=== PATIENT | male | born 1990 | race Caucasian/White ===

== ENCOUNTER 2019-09-11 12:45 | Emergency (ER) | payer SELFPAY ==
[2019-09-11 13:02] VITALS: BP 127/77; PULSE 88; RESP 16; TEMP 36.6; O2SAT 99; BMI 25.0
--- NOTE | 2019-09-11 13:25 | ED_ITS ---
HPI - General Adult General: Chief complaint: General Medical Stated complaint: congestion Time Seen by Provider: 09/11/19 12:53 History of Present Illness: HPI narrative: 28-year-old male returns with sinus congestion for the last week no fever no cough. [id number] antihistamines with minimal relief. Denies any other symptoms no sweats chills vomiting diarrhea Associated symptoms: Deny chest pain, dyspnea, malaise, nausea, rash or vomiting Review of Systems Const: Denies: fever, chills, body aches, change in appetite, fatigue or malaise ENMT: Reports: nasal discharge and nasal congestion; Denies: throat pain or ear pain Card: Denies: chest pain, edema, shortness of breath on exertion or shortness of breath when lying down Resp: Denies: shortness of breath, productive cough or non-productive cough GI: Denies: abdominal pain, nausea, vomiting, vomiting blood, coffee grounds in vomit, diarrhea, constipation, bloating, blood in stool or black tarry stool : Denies: flank pain, painful urination, urinary frequency or urinary urgency Skin/Breast: Denies: rash or itching PFSH ED PFSH: Social History Smoking and tobacco status: former smoker Physical Exam Const: COMMON NORMALS: no apparent distress GENERAL APPEARANCE: cooperative and comfortable ORIENTATION/CONSCIOUSNESS: Yes awake, Yes oriented to person, Yes oriented to place and Yes oriented to time HENMT: COMMON NORMALS: normocephalic, head/scalp atraumatic, hearing grossly normal bilaterally, external ears normal, EAC's normal, TM's normal bilaterally, moist oral mucous membranes and oropharynx normal HEAD & SCALP: normocephalic and atraumatic NOSE: mucous membranes and turbinates abnormal boggy and nasal discharge EXTERNAL EAR: Yes external ears normal EXTERNAL AUDITORY CANAL: EAC's normal TYMPANIC MEMBRANE: TM's normal bilaterally Eye: COMMON NORMALS: PERRL, EOMs intact bilaterally, conjunctivae normal and no scleral icterus CONJUNCTIVA: Yes conjunctivae normal PUPIL: Yes PERRL Neck/C-Spine: COMMON NORMALS: full ROM, no lymphadenopathy, supple and no JVD Lymph: LYMPHATIC: no lymphadenopathy noted and no lymphedema noted Resp: COMMON NORMALS: normal respiratory effort, no retractions, no use of accessory muscles and clear to auscultation bilaterally AUSCULTATION: clear to auscultation bilaterally Cardio: COMMON NORMALS: no JVD, regular rate, regular rhythm and no murmurs RATE: regular rate RHYTHM: regular rhythm GI: COMMON NORMALS: soft to palpation and no hepatosplenomegaly AUSCULTATION: Yes normoactive bowel sounds PALPATION: Yes soft, No tender, No guarding and Yes no hepatosplenomegaly Extremity: COMMON NORMALS: normal to inspection, normal capillary refill, no clubbing, cyanosis or edema, no calf tenderness and no pedal edema Neuro: SENSORIUM/ORIENTATION: Yes oriented to person, Yes oriented to place and Yes oriented to time Skin: COMMON NORMALS: no rashes or lesions noted GENERAL SKIN EXAM: no rashes or lesions noted Course Vital Signs: Vital signs: Vital Signs Temperature 98.2 F 09/11/19 14:25 Pulse Rate 75 09/11/19 14:25 Respiratory Rate 16 09/11/19 14:25 Blood Pressure 122/74 09/11/19 14:25 Pulse Oximetry 99 09/11/19 14:25 Discharge Plan Discharge Patient Disposition: Home, Self-Care Clinical Impression: Seasonal allergic rhinitis Condition: Stable Prescriptions: New Medrol (Ji) 4 mg tablets,dose pack See Rx Instructions .ROUTE .COMPLEX Qty: 21 RF: 0 cetirizine 10 mg tablet 10 mg PO Q12H Qty: 30 RF: 0 Discharge Orders: Discharge Order (Routine); Ordered 09/11/19 Ordered By: Delonte Watson Discharge Diet: Usual diet Discharge Activity: Resume usual activity Discharge Date/Time: 09/11/19 14:29 Coding Level of Care Code ED Square Cutter for Sun Monahan
[2019-09-11 14:25] VITALS: BP 122/74; PULSE 75; RESP 16; TEMP 36.8; O2SAT 99
== END 2019-09-11 14:29 | disposition home or self-care (01) ==
PROVIDERS: Emergency Provider Family Medicine
DX: J30.2 Other seasonal allergic rhinitis (principal); Z87.891 Personal history of nicotine dependence
CPT/HCPCS: 12345; 99281

== ENCOUNTER 2020-01-27 18:22 | Emergency (ER) | payer SELFPAY ==
[2020-01-27 18:24] VITALS: BP 120/80; PULSE 80; RESP 18; TEMP 36.6; O2SAT 96; BMI 25.0
--- NOTE | 2020-01-27 18:50 | CTR_ITS ---
PROCEDURE INFORMATION: Exam: CT Cervical Spine Without Contrast Exam date and time: 01/27/2020 6:55 PM Age: 29 years old Clinical indication: Neck pain; Prior surgery TECHNIQUE: Imaging protocol: Computed tomography images of the cervical spine without contrast. Radiation optimization: All CT scans at this facility use at least one of these dose optimization techniques: automated exposure control; mA and/or kV adjustment per patient size (includes targeted exams where dose is matched to clinical indication); or iterative reconstruction. COMPARISON: CT Cervical Spine wo* [id number] 05/07/2018 6:51 PM RADIATION DOSE METRICS: Total DLP (mGy-cm): 652.19 FINDINGS: Vertebrae: There is a satisfactory appearance of the anterior and posterior fusion of the cervical spine. Anterior plate and screw fixation with interbody cage is identified at C6-T1. Posterior pedicle screw and posterior nancy fixation is identified from C5 through T3. No hardware loosening or fracture. No acute bony fracture or subluxation. Discs/Spinal canal/Neural foramina: No significant disc protrusion. No severe spinal canal stenosis. No significant neural foraminal narrowing. Soft tissues: Unremarkable. Lungs: Lung apices are normal. CT/CT cervical spin wo con* [id number] IMPRESSION: 1. There is a satisfactory appearance of the anterior and posterior fusion of the cervical spine. 2. No acute abnormality. Radiation Dose CTDIVOL = (mGy): DLP = 652.19 (mGy-cm)
--- NOTE | 2020-01-27 18:55 | W.ED.NECK ---
HPI - Neck Pain/Injury General: Chief Complaint: Neck Pain/Injury Stated Complaint: neck pain Time Seen by Provider: 01/27/20 18:49 Source: patient and EMS Mode of arrival: EMS Limitations: no limitations History of Present Illness: HPI Narrative: 29-year-old male who states that he has been having neck pain. He has a history of chronic neck pain from an injury 10 years ago. 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 It is worse with movement. Denies any weakness or numbness in his arms. MD complaint: neck pain Onset (ago): day(s) Place: home and work Radiation: right lateral Severity: moderate Quality: sharp Duration: constant Relieving factors: immobilization Exacerbating factors: movement of extremity Associated symptoms: Denies headache(s) or nausea Review of Systems Const: Denies: fever(s), chills, body aches or change in appetite Eyes: Denies: blurry vision or eye discomfort ENMT: Denies: throat pain or dental pain Card: Denies: chest pain Resp: Denies: dyspnea GI: Denies: abdominal pain, nausea, vomiting or diarrhea : Denies: dysuria Musc: Reports: neck pain Skin/Breast: Denies: rash Neuro: Denies: headache(s) Psych: Denies: depression Micheal/Lymph: Denies: easy bruising All/Imm: Denies: urticaria PFSH ED PFSH: Social History Smoking and tobacco status: former smoker Physical Exam Const: COMMON NORMALS: no acute distress, patient oriented x3 and healthy appearing HENMT: COMMON NORMALS: normocephalic and atraumatic HEAD & SCALP: normocephalic and atraumatic Eye: COMMON NORMALS: Equal, round and reactive pupils present and EOMs intact bilaterally PUPIL: Yes Equal, round and reactive pupils present Neck/C-Spine: OTHER: c collar in place tenderness over right neck Chest: COMMONS NORMALS: normal inspection of the chest and normal palpation of entire chest wall Resp: COMMON NORMALS: normal respiratory effort, No retractions, No use of accessory muscles and clear to auscultation bilaterally AUSCULTATION: clear to auscultation bilaterally Cardio: COMMON NORMALS: regular rate, regular rhythm and No murmurs present (Cardio) RATE: regular rate RHYTHM: regular rhythm GI: COMMON NORMALS: Normal to inspection, nondistended, normoactive bowel sounds present, Soft to palpation, non-tender and no masses PALPATION: Yes Soft to palpation Extremity: COMMON NORMALS: normal to inspection and full ROM Neuro: COMMON NORMALS: patient oriented x3, moves all extremities and no focal motor deficits Psych: COMMON NORMALS: mental status grossly normal, Normal thought process present and cooperative THOUGHT PROCESS: Normal thought process present Skin: COMMON NORMALS: no rashes or lesions noted and no wounds GENERAL SKIN EXAM: no rashes or lesions noted Course Vital Signs: Vital signs: Vital Signs Temperature 97.9 F 01/27/20 18:24 Pulse Rate 80 01/27/20 18:24 Respiratory Rate 18 01/27/20 18:24 Blood Pressure 120/80 01/27/20 18:24 Pulse Oximetry 96 01/27/20 18:24 MDM - Neck Pain/Injury MDM Narrative: Medical decision making narrative: Patient presents here with neck pain is likely a muscle spasm. Patient's CT here is normal and his neuro exam is benign. We will place him on Naprosyn and Robaxin. Patient is stable for discharge and return if worsening. Imaging Data^: ct c spine: Attestation: I personally reviewed and interpreted this imaging study as follows: Radiologist's impression: [address] [address] [address] Scan Report Signed Patient: Power Fraser Unit #: [id number] : 1990 Age/Sex: 29 / M ADM Date: 01/27/20 Loc: ER Room/Bed: Attending Dr: Ordering Provider/Ordering MD: Carlos Blanco MD Date of Service: 01/27/20 Procedure(s): CT cervical spin wo con* [id number] Accession Number(s): [id number] Report Number: [id number] PROCEDURE INFORMATION: Exam: CT Cervical Spine Without Contrast Exam date and time: 01/27/2020 6:55 PM Age: 29 years old Clinical indication: Neck pain; Prior surgery TECHNIQUE: Imaging protocol: Computed tomography images of the cervical spine without contrast. Radiation optimization: All CT scans at this facility use at least one of these dose optimization techniques: automated exposure control; mA and/or kV adjustment per patient size (includes targeted exams where dose is matched to clinical indication); or iterative reconstruction. COMPARISON: CT Cervical Spine wo* [id number] 05/07/2018 6:51 PM RADIATION DOSE METRICS: Total DLP (mGy-cm): 652.19 FINDINGS: Vertebrae: There is a satisfactory appearance of the anterior and posterior fusion of the cervical spine. Anterior plate and screw fixation with interbody cage is identified at C6-T1. Posterior pedicle screw and posterior nancy fixation is identified from C5 through T3. No hardware loosening or fracture. No acute bony fracture or subluxation. Discs/Spinal canal/Neural foramina: No significant disc protrusion. No severe spinal canal stenosis. No significant neural foraminal narrowing. Soft tissues: Unremarkable. Lungs: Lung apices are normal. CT/CT cervical spin wo con* [id number] IMPRESSION: 1. There is a satisfactory appearance of the anterior and posterior fusion of the cervical spine. 2. No acute abnormality. Discharge Plan Discharge Patient Disposition: Home Clinical Impression: Strain of neck muscle Qualifiers: Encounter type: initial encounter Qualified Code(s): S16.1XXA - Strain of muscle, fascia and tendon at neck level, initial encounter Condition: Stable Prescriptions: New Robaxin-750 750 mg tablet 750 mg PO Q6H Qty: 30 RF: 0 Naprosyn 500 mg tablet 500 mg PO BID PRN (Reason: pain) Qty: 20 RF: 0 No Action Neupogen 300 mcg/mL Solution See Rx Instructions .ROUTE .COMPLEX RF: 0 Tylenol Extra Strength 500 mg Tablet 500 - 1,000 mg PO DAILY PRN (Reason: Pain) RF: 0 Discharge Orders: Discharge Order (Routine); Ordered 01/27/20 Ordered By: Carlos Blanco Discharge Diet: Advance as tolerated Discharge Activity: Resume usual activity Patient Instructions: Cervical Spine Strain (ED) Coding Level of Care Code ED Cutter Grinder Operator for Sun Fwd Exam Comprehensive
[2020-01-27] MEDS: ketorolac 60 mg/2 mL INJ IM (19:26)
== END 2020-01-27 19:58 | disposition home or self-care (01) ==
PROVIDERS: Emergency Provider Emergency Medicine
DX: S16.1XXA Strain of muscle, fascia and tendon at neck level, initial encounter (principal); Z87.891 Personal history of nicotine dependence; X50.9XXA Other and unspecified overexertion or strenuous movements or postures, initial encounter
CPT/HCPCS: 12345; 72125; 96372; 99282; 99283; J1885

== ENCOUNTER 2022-10-14 09:06 | Outpatient (CLI) | payer MEDICARE, OTHER, SELFPAY ==
[2022-10-14 10:19] LABS: Hematocrit 22.7 % (42.0-52.0); Hemoglobin 7.7 g/dL (11.7-16.6); Lymphocytes % 85.2 %; Mean Corpuscular HGB Conc 33.9 g/dL (30.0-36.0); Mean Corpuscular Hemoglobin 29.2 pg (28.0-34.0); Monocytes # 0.1 10^3/uL (0.2-0.9); Monocytes % 9.6 %; Neutrophils % 4.3 %; Nucleated Red Blood Cells % 0 %; Red Blood Count 2.64 10^6/uL (4.1-5.3); Red Cell Distribution Width 14.1 % (12.1-15.1); White Blood Count 1.2 10^3/uL (4.0-10.0)
[2022-10-14 10:26] LABS: Platelet Count 6 10^3/cmm (130-400)
[2022-10-14 10:27] LABS: Neutrophils # 0.05 10^3/uL (1.8-7.7)
[2022-10-14 10:47] LABS: Alanine Aminotransferase 68 U/L (0-41); Albumin Level 3.8 g/dL (3.5-5.2); Alkaline Phosphatase 144 U/L (40-130); Anion Gap 12.4 (5-19); Aspartate Amino Transferase 82 U/L (0-40); Blood Urea Nitrogen 9 mg/dL (6-20); Calcium 8.3 mg/dL (8.5-10.5); Carbon Dioxide 25 mmol/L (22-29); Chloride 105 mmol/L (98-107); Globulin 2.6 g/dL (1.3-4.6); Glomerular Filtration Rate 155.2 mL/min (90-130); Glucose 105 mg/dL (65-115); Lactate Dehydrogenase 120 U/L (135-225); Osmolality Calculated 287 mOsm/kg (285-295); Potassium 3.4 mmol/L (3.5-5.1); Sodium 139 mmol/L (136-145); Total Bilirubin 0.9 mg/dL (0.15-1.2); Total Protein 6.4 g/dL (6.6-8.7)
== END 2022-10-14 09:07 | disposition home or self-care (01) ==
PROVIDERS: PCP Internal Medicine Medical Oncology; Visit Provider Internal Medicine Medical Oncology
DX: D70.4 Cyclic neutropenia (principal)
CPT/HCPCS: 36415; 80053; 83615; 85025

== ENCOUNTER → 2022-10-14 12:20 | Day surgery (SDC) | payer MEDICARE, SELFPAY ==
[2022-10-14] VITALS (8 sets, daily range): BP systolic 109–131; BP diastolic 66–79; PULSE 59–78; RESP 16–20; TEMP 36.6–37.3; O2SAT 97–99; BMI 24.4
[2022-10-14] MEDS: diphenhydrAMINE 25 mg Capsule PO (12:50)
[2022-10-14] MEDS: acetaminophen 325 mg Tablet 650 MG PO (12:50)
[2022-10-14] MEDS: sodium chloride 0.9% 250 mL Bag IV (13:10)
== END ==
PROVIDERS: PCP Internal Medicine Medical Oncology; Visit Provider Internal Medicine Medical Oncology
DX: D70.4 Cyclic neutropenia (principal); Z79.899 Other long term (current) drug therapy
CPT/HCPCS: 36415; 36430; 80053; 83615; 85025; 86850; 86900; 86920; J7050; P9037; P9040

== ENCOUNTER 2022-10-21 12:03 | Oncology outpatient (recurring) (ONCR) | payer MEDICARE, SELFPAY ==
[2022-10-17 13:10] LABS: Hematocrit 23.5 % (42.0-52.0); Lymphocytes # 0.8 10^3/uL (0.8-4.8); Mean Corpuscular Hemoglobin 29.5 pg (28.0-34.0); Mean Corpuscular Volume 86.7 fl (80-94); Mean Platelet Volume 9.3 fL (7.4-10.4); Monocytes # 0.1 10^3/uL (0.2-0.9); Monocytes % 9.8 %; Neutrophils % 2.1 %; Nucleated Red Blood Cells % 0 %; Red Blood Count 2.71 10^6/uL (4.1-5.3); Red Cell Distribution Width 13.8 % (12.1-15.1)
[2022-10-17 13:25] LABS: Alanine Aminotransferase 80 U/L (0-41); Albumin Level 3.8 g/dL (3.5-5.2); Alkaline Phosphatase 138 U/L (40-130); Anion Gap 13.9 (5-19); Aspartate Amino Transferase 90 U/L (0-40); Blood Urea Nitrogen 9 mg/dL (6-20); Calcium 8.7 mg/dL (8.5-10.5); Carbon Dioxide 25 mmol/L (22-29); Chloride 98 mmol/L (98-107); Globulin 2.7 g/dL (1.3-4.6); Glomerular Filtration Rate 111.3 mL/min (90-130); Glucose 103 mg/dL (65-115); Lactate Dehydrogenase 128 U/L (135-225); Osmolality Calculated 277 mOsm/kg (285-295); Sodium 134 mmol/L (136-145); Total Bilirubin 1.2 mg/dL (0.15-1.2); Total Protein 6.5 g/dL (6.6-8.7)
[2022-10-17 13:39] LABS: Potassium 2.9 mmol/L (3.5-5.1)
[2022-10-17 14:10] LABS: Neutrophils # 0.02 10^3/uL (1.8-7.7); Platelet Count 14 10^3/cmm (130-400); White Blood Count 0.9 10^3/uL (4.0-10.0)
[2022-10-17 14:11] LABS: Slide Review Slide Review Perform
[2022-10-18] VITALS (9 sets, daily range): BP systolic 100–113; BP diastolic 58–74; PULSE 65–80; RESP 16–18; TEMP 36.2–37.4; O2SAT 92–98
[2022-10-18] MEDS: acetaminophen 325 mg Tablet 650 MG PO (08:42)
[2022-10-18] MEDS: diphenhydrAMINE 25 mg Capsule PO (08:43)
[2022-10-18] MEDS: sodium chloride 0.9% 250 mL Bag IV (08:52)
[2022-10-18 11:03] LABS: Bilirubin Urine Neg (Negative); Blood Urine 3+ (Negative); Glucose Urine UA Norm (Normal); Ketones Urine Negative (Negative); Leukocyte Esterase Urine Negative (Negative); Nitrate Urine Negative (Negative); Protein Urine Neg (Negative); Urine Appearance Hazy (CLEAR); Urine Color Yellow (Yellow); Urobilinogen Urine 4 mg/dL (Negative); pH Urine 7 (5-7)
[2022-10-18 11:04] LABS: Bacteria Urine TRACE /hpf; RBC Urine 15-25 /hpf (0-2); Squamous Epithelial Cell Urine 0-4 /hpf (0-5); WBC Urine 0-4 /hpf (0-5)
[2022-10-18 11:05] LABS: Add Urine Culture? Yes
[2022-10-21 13:20] LABS: Hematocrit 26.7 % (42.0-52.0); Hemoglobin 9.2 g/dL (11.7-16.6); Lymphocytes # 1.3 10^3/uL (0.8-4.8); Lymphocytes % 93.4 %; Mean Corpuscular HGB Conc 34.5 g/dL (30.0-36.0); Mean Corpuscular Hemoglobin 29.6 pg (28.0-34.0); Mean Corpuscular Volume 85.9 fl (80-94); Mean Platelet Volume 10.4 fL (7.4-10.4); Monocytes # 0.1 10^3/uL (0.2-0.9); Monocytes % 4.4 %; Neutrophils % 2.2 %; Nucleated Red Blood Cells % 0 %; Red Blood Count 3.11 10^6/uL (4.1-5.3); Red Cell Distribution Width 13.7 % (12.1-15.1); White Blood Count 1.4 10^3/uL (4.0-10.0)
[2022-10-21 13:34] LABS: Neutrophils # 0.03 10^3/uL (1.8-7.7); Platelet Count 22 10^3/cmm (130-400)
[2022-10-21 13:47] LABS: Alanine Aminotransferase 94 U/L (0-41); Albumin Level 3.8 g/dL (3.5-5.2); Alkaline Phosphatase 150 U/L (40-130); Anion Gap 15.6 (5-19); Aspartate Amino Transferase 91 U/L (0-40); Blood Urea Nitrogen 10 mg/dL (6-20); Calcium 8.3 mg/dL (8.5-10.5); Carbon Dioxide 24 mmol/L (22-29); Chloride 102 mmol/L (98-107); Globulin 2.8 g/dL (1.3-4.6); Glomerular Filtration Rate 129.9 mL/min (90-130); Glucose 108 mg/dL (65-115); Lactate Dehydrogenase 119 U/L (135-225); Osmolality Calculated 286 mOsm/kg (285-295); Potassium 3.6 mmol/L (3.5-5.1); Sodium 138 mmol/L (136-145); Total Bilirubin 0.9 mg/dL (0.15-1.2); Total Protein 6.6 g/dL (6.6-8.7)
== END 2022-10-30 23:59 | disposition home or self-care (01) ==
PROVIDERS: Internal Medicine Medical Oncology; PCP Internal Medicine Medical Oncology; Visit Provider Internal Medicine Medical Oncology
DX: D70.4 Cyclic neutropenia (principal)
CPT/HCPCS: 36415; 36430; 80053; 81001; 83615; 85025; 86850; 86900; 86920; 87086; J7050; P9040; P9053

== ENCOUNTER 2022-11-21 09:38 | Oncology outpatient (recurring) (ONCR) | payer MEDICARE, SELFPAY ==
[2022-11-21 10:04] VITALS: BP 124/81; PULSE 70; RESP 18; TEMP 36.6; O2SAT 99
[2022-11-21 10:22] LABS: Hematocrit 26.2 % (42.0-52.0); Hemoglobin 9.2 g/dL (11.7-16.6); Lymphocytes # 0.7 10^3/uL (0.8-4.8); Mean Corpuscular HGB Conc 35.1 g/dL (30.0-36.0); Mean Corpuscular Hemoglobin 28.8 pg (28.0-34.0); Mean Corpuscular Volume 81.9 fl (80-94); Mean Platelet Volume 11.9 fL (7.4-10.4); Nucleated Red Blood Cells % 0 %
[2022-11-21 10:34] LABS: Alanine Aminotransferase 88 U/L (0-41); Albumin Level 3.4 g/dL (3.5-5.2); Alkaline Phosphatase 154 U/L (40-130); Anion Gap 12.1 (5-19); Aspartate Amino Transferase 86 U/L (0-40); Blood Urea Nitrogen 11 mg/dL (6-20); Calcium 8.3 mg/dL (8.5-10.5); Carbon Dioxide 25 mmol/L (22-29); Chloride 105 mmol/L (98-107); Globulin 2.8 g/dL (1.3-4.6); Glomerular Filtration Rate 129.1 mL/min (90-130); Glucose 123 mg/dL (65-115); Osmolality Calculated 289 mOsm/kg (285-295); Potassium 3.1 mmol/L (3.5-5.1); Sodium 139 mmol/L (136-145); Total Bilirubin 0.8 mg/dL (0.15-1.2); Total Protein 6.2 g/dL (6.6-8.7)
[2022-11-21 10:58] LABS: Platelet Count 10 10^3/cmm (130-400); White Blood Count 0.7 10^3/uL (4.0-10.0)
== END 2022-11-29 23:59 | disposition home or self-care (01) ==
PROVIDERS: Internal Medicine Medical Oncology; PCP Internal Medicine Medical Oncology; Visit Provider Internal Medicine Medical Oncology
DX: D46.9 Myelodysplastic syndrome, unspecified (principal)
CPT/HCPCS: 36592; 80053; 85025